=== PATIENT | female | born 1935 ===

== ENCOUNTER 2019-10-22 01:23 | Inpatient (IN) | payer MEDICARE, SELFPAY ==
[2019-10-21 22:24] VITALS: BMI 23.8
[2019-10-21 23:03] VITALS: BP 126/69; PULSE 82; RESP 17; TEMP 37.4; O2SAT 92
[2019-10-22] VITALS (9 sets, daily range): BP systolic 108–148; BP diastolic 62–70; PULSE 77–90; RESP 16–22; TEMP 36.6–37.3; O2SAT 93–95; BMI 23.0
--- NOTE | 2019-10-22 01:23 | USCV_ITS ---
Daron Christianne Age: 84 Gender: F : 1935 Exam Date: 10/22/2019 08:26 Ordering Phys: Evelia Butler MD Technologist: Heena Powers Exam Location: [facility] – [place] Indication: CVA workup BP: 112 / 62 HR: 100 Rhythm: Sinus Technical Quality: Fair MEASUREMENTS (Male / Female) Normal Values 2D ECHO LV Diastolic Diameter PLAX 3.3 cm 4.2 - 5.9 / 3.9 - 5.3 cm LV Systolic Diameter PLAX 1.9 cm LV Chamber Size 3.2 cm IVS Diastolic Thickness 1.6 cm 0.6 - 1.0 / 0.6 - 0.9 cm IVS Systolic Thickness 1.9 cm LVPW Diastolic Thickness 1.3 cm 0.6 - 1.0 / 0.6 - 0.9 cm LVPW Systolic Thickness 1.4 cm RV Chamber Size 2.0 cm LVOT Diameter 1.8 cm LV Ejection Fraction 2D Teich 74.5 % LV Ejection Fraction MOD 2C 73.9 % LV Ejection Fraction 2C AL 75.7 % LA Diameter 4.6 cm LA Width 2.8 cm LA Height 4.3 cm RA Width 2.5 cm RA Height 4.4 cm Aorta at Sinotubular Diameter 3.1 cm M-MODE LV Diastolic Diameter MM 4.9 cm 4.2 - 5.9 / 3.9 - 5.3 cm LV Systolic Diameter MM 3.0 cm LV Ejection Fraction MM Teich 68.6 % IVS Diastolic Thickness MM 1.4 cm 0.6 - 1.0 / 0.6 - 0.9 cm IVS Systolic Thickness MM 2.0 cm LVPW Diastolic Thickness MM 1.3 cm 0.6 - 1.0 / 0.6 - 0.9 cm LVPW Systolic Thickness MM 1.8 cm RV Diastolic Diameter MM 0.9 cm Aortic Annulus Diameter 3.4 cm LA Ao Ratio MM 1.3 MV E Point Septal Separation 0.8 cm DOPPLER AV Peak Velocity 188.0 cm/s LVOT Peak Velocity 156.0 cm/s AV Area Cont Eq vti 2.6 cm squared AV Area Cont Eq pk 2.2 cm squared MV Area PHT 2.7 cm squared Mitral E to A Ratio 0.8 MV E' Velocity 8.0 cm/s Mitral E to MV E' Ratio 10.4 Mitral E to LV E' Lateral Ratio 10.0 Mitral E to LV E' Septal Ratio 10.9 TR Peak Velocity 299.0 cm/s TR Peak Gradient 35.9 mmHg TR Mean Velocity 210.5 cm/s TR Mean Gradient 18.5 mmHg TR Velocity Time Integral 77.2 cm TV Peak E Velocity 65.0 cm/s Right Atrial Pressure 3.0 mmHg Pulmonary Artery Systolic Pressu 38.8 mmHg PV Peak Velocity 94.0 cm/s RV Acceleration Time 0.1 s RV Ejection Time 0.3 s RV AcT/ET 0.2 FINDINGS Left Ventricle Normal left ventricular cavity size. Mild left ventricular hypertrophy. Normal left ventricular systolic function. No regional wall motion abnormalities. Grade I/IV diastolic dysfunction (abnormal relaxation filling pattern), normal to mildly elevated filling pressures. Left ventricular ejection fraction is estimated at 65 %. Right Ventricle Normal right ventricular size and systolic function. Mild pulmonary hypertension, RVSP 38.8 mmHg. Right Atrium The right atrium is normal in size. Left Atrium Mildly increased left atrial size. Mitral Valve Structurally normal mitral valve. Trace mitral valve regurgitation. Aortic Valve Structurally normal aortic valve without significant sclerosis or stenosis. There is no aortic regurgitation. Tricuspid Valve Structurally normal tricuspid valve. Trace to mild tricuspid valve regurgitation. Pulmonic Valve Pulmonic valve not well visualized. Pericardium Normal pericardium without effusion. Aorta Normal ascending aorta dimension. CONCLUSIONS Normal left ventricular cavity size. Mild left ventricular hypertrophy. Normal left ventricular systolic function. No regional wall motion abnormalities. Grade I/IV diastolic dysfunction (abnormal relaxation filling pattern), normal to mildly elevated filling pressures. Left ventricular ejection fraction is estimated at 65 %. Normal right ventricular size and systolic function. Mild pulmonary hypertension, RVSP 38.8 mmHg. Mildly increased left atrial size. Structurally normal mitral valve. Trace mitral valve regurgitation. There are no prior echocardiogram studies to compare. Dr. Jairo Ling MD (Electronically Signed) Final Date: 22 October 2019 11:15 S
--- NOTE | 2019-10-22 01:29 | P.HP_ITS ---
Providers/Chief Complaint Admitting Physician: Evelia Butler MD Chief Complaint: stroke;colitis History of Present Illness Christianne Neri is a 84 year old female with PMHx of OA (knees), Restless leg syndrome, HTN; presents as a transfer from [facility] where she had presented earlier in the day with slurred speech, left-sided weakness that family has started to notice on Thursday. Daughter present at bedside during my assessment on patient's arrival to the floor. Patient speech is quite slurred so daughter provides much of her history. Patient has been living independently and daughter states she has had 7-8 falls due to unsteady gait since this past weekend. When she spoke to her on the phone on Thursday she noticed that her speech was quite slurred and difficult to understand. Patient was taken to her PCP for evaluation and diagnosed with a UTI and prescribed cefdinir which she has been taking. She has progressively gotten weaker, more unsteady and has been drooling particularly earlier today. She was found on the floor with decreased responsiveness, had been down for an unknown period of time. Per family patient has never had a stroke before though there was suspicious that this might have happened when she started to act differently. She has been slow to respond and somewhat disoriented as well. I reviewed paperwork provided by outside facility indicating that patient had significant leukocytosis with a white count of 27.9, noted left shift with bandemia, normal hemoglobin and platelet count, slight hypokalemia with a potassium of 3.4, BUN of 25, creatinine of 1.2, blood glucose of 181. Lipase of 66. Urinalysis shows evidence of dehydration and infection, positive for pyuria, ketones, bacteria, bilirubin. CT scan of the head showed subacute right frontal lobe changes with no acute bleed noted. CT scan of the abdomen and pelvis was done as well showing left descending and sigmoid colon wall thickening consistent with colitis, unable to rule out lesion. She also had a CTA of the head and neck which shows mild irregularity of the carotids but no dissection, thrombus. She was not considered a candidate for TPA given the window of presentation. Vital signs are stable. She has consistently shown left-sided weakness and slurring of her speech. Patient does mention that she has had multiple episodes of watery stool over the past several days. She is very restless and I suspect she will likely not pass her bedside dysphasia screen given the obvious slurring of her speech and noted droop. Explained care plan to the patient and her family at bedside. Review of Systems Const: Reports: fatigue; Denies: fever or chills Eyes: Denies: change in vision ENMT: Reports: other (Difficulty swallowing) Card: Denies: chest pain, swelling of feet/ankles or lightheadedness Resp: Denies: shortness of breath GI: Reports: diarrhea; Denies: abdominal pain, nausea, vomiting, vomiting blood or blood in stool : Denies: difficulty urinating, painful urination or urinary frequency Musc: Denies: back pain Skin/Breast: Denies: rash Neuro: Reports: weakness in extremities (Left-sided), difficulty walking, frequent falls, confusion and slurred speech; Denies: numbness in extremities Psych: Denies: anxiety Medications/Allergies Home Medications Medication Instructions Recorded Confirmed Last Taken Type cefdinir mg 10/21/19 10/21/19 Unknown History clonazepam PRN 10/21/19 Unknown History lisinopril 10/21/19 10/21/19 History 40 olmesartan-hydrochlorothiazide tab 10/21/19 10/21/19 Unknown History Allergies Allergy/AdvReac Type Severity Reaction Status Date / Time codeine Allergy ALGY-Anaphy Verified 10/21/19 23:07 laxis PFSH Acute PFSH: Statuses (acute, chronic, etc) shown below reflect problem list status as previously entered and may not be historically accurate Medical History (Updated 10/22/19 @ 03:43 by Evelia Butler MD) Hypertension (Acute) Surgical History (Updated 10/22/19 @ 03:35 by Evelia Butler MD) H/O hysterectomy for benign disease (Acute) Family History Mother Cervical cancer Father Lung cancer Brother Heart attack Social History (Updated 10/22/19 @ 03:35 by Evelia Butler MD) Smoking and tobacco status: never smoked Alcohol intake: never Substance/Drug Use: never Lives independently: Yes Vitals/I&O/Wt Last Vital Signs Temp 98.9 F 10/22/19 00:52 Pulse 84 10/22/19 00:52 Resp 21 H 10/22/19 00:52 BP 148/67 10/22/19 00:52 Pulse Ox 93 10/22/19 00:52 10/21/19 10/21/19 10/22/19 14:59 22:59 06:59 Intake Total 0 / 0 Balance 0 / 0 Weight last 48 hrs Weight 59.194 kg Physical Exam Const: COMMON NORMALS: no apparent distress and oriented x3 GENERAL APPEARANCE: cooperative and comfortable ORIENTATION/CONSCIOUSNESS: Yes awake, Yes oriented to person, Yes oriented to place and Yes oriented to time HENMT: COMMON NORMALS: normocephalic, head/scalp atraumatic and hearing grossly normal bilaterally HEAD & SCALP: normocephalic and atraumatic MOUTH: moist mucous membranes abnormal Details: parched Eye: COMMON NORMALS: PERRL, EOMs intact bilaterally and conjunctivae normal CONJUNCTIVA: Yes conjunctivae normal PUPIL: Yes PERRL Neck/C-Spine: COMMON NORMALS: full ROM GENERAL: Yes normal visual inspection and Yes trachea midline Resp: COMMON NORMALS: normal respiratory effort, no retractions, no use of accessory muscles and clear to auscultation bilaterally EFFORT & INSPECTION: Yes able to speak in complete sentences, Yes symmetric chest movement and No tachypneic AUSCULTATION: clear to auscultation bilaterally Cardio: COMMON NORMALS: regular rate, regular rhythm, S1 normal heart sound, S2 normal heart sound and no murmurs RATE: regular rate RHYTHM: regular rhythm HEART SOUNDS: S1 normal and S2 normal GI: COMMON NORMALS: normal to inspection, nondistended, normoactive bowel sounds, soft to palpation and non-tender PALPATION: Yes soft Extremity: COMMON NORMALS: normal to inspection and no clubbing, cyanosis or edema; negative for no pedal edema Neuro: COMMON NORMALS: oriented x3, moves all extremities, no focal motor deficits, no sensory deficits noted and gait normal SENSORIUM/ORIENTATION: Yes alert, Yes oriented to person, Yes oriented to place and Yes oriented to time SPEECH: abnormal speech Details: slurred GAIT: Yes unable to assess gait MOTOR EXAM: movement abnormality noted PUPIL EXAM: Normal pupillary reactivity/response: bilateral OTHER: -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 and weakness of LLE Psych: COMMON NORMALS: mental status grossly normal, thought process normal, cooperative, affect normal and speech normal SPEECH: Yes normal speech THOUGHT PROCESS: normal thought process Skin: COMMON NORMALS: no rashes or lesions noted, no jaundice, no petechiae and no mottling GENERAL SKIN EXAM: no rashes or lesions noted Data Other Labs: -reviewed labs done at [facility], paperwork in chart CBC : WBC-27.9 with bandemia BMP: K-3.4, BUN-25, Cr-1.2, BG-181; otherwise wnl UA: green/+ketones/+nitrite/+bilirubin/+bacteria Other data: -CT head: Subacute right frontal lobe changes -CT A/P: Left descending and sigmoid colon wall thickening -CTA H/N: Mild irregularity of carotids A&P Assessment and plan (1) CVA (cerebral vascular accident): -Subacute CVA involving the right frontal lobe per CT scan done at outside facility -Neuro deficits include slurred speech, dysphasia, left-sided weakness -fall, aspiration precautions -PT/ST/OT evaluations -order Echo -telemetry montioring -monitor vital signs -bedside dysphagia screening Status: Acute Qualifiers: CVA mechanism: unspecified Qualified Code(s): I63.9 - Cerebral infarction, unspecified Code(s): I63.9 - Cerebral infarction, unspecified (2) Colitis: -noted colitis involving L descending and sigmoid colon -noted leukocytosis with bandemia; repeat labs in AM -had received dose of Metronidazole at [facility]; continue this and add Ciprofloxacin -f/u blood cx -monitor vital signs -pain control, antiemetics as needed -IVF hydration Status: Acute Code(s): K52.9 - Noninfective gastroenteritis and colitis, unspecified (3) UTI (urinary tract infection): -UA indicative of infection and patient had been on oral antibiotics for the same -on IV abx -f/u urine cx Status: Acute Qualifiers: Urinary tract infection type: acute cystitis Hematuria presence: without hematuria Qualified Code(s): N30.00 - Acute cystitis without hematuria Code(s): N39.0 - Urinary tract infection, site not specified Additional A&P Information -Advanced age -HTN -GI ppx with PPI -DVT ppx with heparin -Dispo: may need SNF placement as has been living independently -Code status: DNR/DNI Attestations Medical Necessity Statement*: Christianne Neri's hospital stay will require greater than 2 midnights for management of subacute CVA with noted deficits, treatment of colitis and UTI, requiring IV fluid hydration and IV antibiotics. Time Spent in Patient Care: Greater than 35 minutes (>than 50% of time spent in counselling and/or direct pt care on unit) . Coding Level of Care Code Acute Direct Sales Representative for [facility] Fwd Diagnoses CVA (cerebral vascular accident) I63.9 CVA mechanism: unspecified Colitis K52.9 UTI (urinary tract infection) N30.00 Urinary tract infection type: acute cystitis Hematuria presence: without hematuria
[2019-10-22] MEDS: D5-NS 0.45% + KCL 20 mEq 20 MEQ/1,000 ML BAG 75 MEQ IV ×2 (02:17→13:58)
[2019-10-22] MEDS: heparin 5,000 unit/mL INJ 1 mL 5000 UNIT SUBCUT ×2 (02:17→12:27)
[2019-10-22] MEDS: ciprofloxacin 400 MG/200 ML PREMIX 200 MG IV ×2 (02:18→12:26)
[2019-10-22] MEDS: morphine 4 mg/mL SDV 1 mL 2 MG IVP ×2 (02:29→13:58)
[2019-10-22] MEDS: metroNIDAZOLE IV 500 MG/100 ML PREMIX 100 MG IV ×3 (04:54→17:34)
[2019-10-22 06:04] LABS: Basophils # 0.1 10^3/uL (0.0-0.1); Basophils % 0.4 %; Eosinophils % 0.2 %; Hemoglobin 12.7 g/dL (11.5-15.3); Lymphocytes # 0.8 10^3/uL (0.8-4.8); Lymphocytes % 4.6 %; Mean Corpuscular HGB Conc 32.6 g/dL (30.0-36.0); Mean Corpuscular Hemoglobin 30.2 pg (28.0-34.0); Mean Corpuscular Volume 92.6 fL (81-99); Mean Platelet Volume 11.1 fL (7.4-10.4); Monocytes # 1.3 10^3/uL (0.2-0.9); Monocytes % 7.6 %; Neutrophils # 14.8 10^3/uL (1.8-7.7); Neutrophils % 86.7 %; Nucleated Red Blood Cells % 0 %; Platelet Count 239 10^3/cmm (130-400); Red Blood Count 4.21 10^6/uL (4.1-5.3); Red Cell Distribution Width 13.3 % (12.1-15.1)
[2019-10-22 06:21] LABS: INR 1.25 (0.8-1.2)
[2019-10-22 06:37] LABS: Estmated Average Glucose 120; Hemoglobin A1C 5.8 % (4.0-6.0)
[2019-10-22 06:41] LABS: Anion Gap 13.5 (5-19); Blood Urea Nitrogen 22 mg/dL (8-23); Carbon Dioxide 22 mmol/L (22-29); Chloride 108 mmol/L (98-107); Cholesterol 105 mg/dL (0-200); Glucose 126 mg/dL (74-106); HDL Cholesterol 35 mg/dL (60-100); LDL Cholesterol Calculated 55 mg/dL (50-129); LDL HDL Ratio 1.57 RATIO (0.00-3.22); Potassium 3.5 mmol/L (3.5-5.1); Sodium 140 mmol/L (136-145); Thyroid Stimulating Hormone 1.59 uIU/mL (0.27-4.20); Triglycerides 73 mg/dL (0-150)
[2019-10-22] MEDS: pantoprazole 40 mg SDV IVP (08:35)
--- NOTE | 2019-10-22 10:40 | P.PN_ITS ---
Subjective Subjective: Interval history: History and physical was reviewed in detail. Patient reports she feels stiff. She has difficulty moving her left side. She reports she cannot swallow effectively. She denies any abdominal pain. Currently she denies any diarrhea. Medications: Reviewed: Yes Vitals/I&O/Wt Last Vital Signs Temp 97.9 F 10/22/19 08:00 Pulse 79 10/22/19 08:00 Resp 18 10/22/19 08:00 BP 116/68 10/22/19 08:00 Pulse Ox 95 10/22/19 08:00 10/21/19 10/22/19 10/22/19 22:59 06:59 14:59 Intake Total 300 / 300 Balance 300 / 300 Weight last 48 hrs Weight 57.153 kg Weight 57.561 kg Weight 59.194 kg Physical Exam Narrative: EXAM NARRATIVE: General exam is a white female, no apparent distress. Speech is slurred Cardiovascular regular rate and rhythm without murmur Lungs diminished breath sounds bilaterally but clear Abdomen is soft, positive bowel sounds. No obvious organomegaly was deferred Extremities no cyanosis clubbing or edema Neurologic: Left facial droop is noted. Left arm with significant paresis. Left leg with partial paresis. Left-sided neglect is present Data : 10/22/19 05:28 10/22/19 05:28 Other data: Echocardiogram is completed but pending Outside laboratory reviewed. EKG demonstrated sinus rhythm, normal axis, slight tachycardia. Nonspecific ST-T wave abnormalities. There is no formal report for her CTs in the chart that I have reviewed and we will ask for those. From my understanding her CTA was negative for embolism or significant narrowing, CTA demonstrated right frontal lobe subacute infarct and CT abdomen and pelvis demonstrated colitis left-sided A&P Assessment and plan (1) CVA (cerebral vascular accident): Subacute, right frontal lobe. Plan therapy evaluations, supportive care, statin, aspirin, Plavix Telemetry Status: Acute Qualifiers: CVA mechanism: unspecified Qualified Code(s): I63.9 - Cerebral infarction, unspecified Code(s): I63.9 - Cerebral infarction, unspecified (2) Colitis: Noted on CT scan. Patient without symptoms currently. Placed on Cipro and Flagyl. This will be continued currently. Follow-up cultures Status: Acute Code(s): K52.9 - Noninfective gastroenteritis and colitis, unspecified (3) UTI (urinary tract infection): Patient was on treatment for urinary tract infection when she presented to the ER. Continue Cipro currently. Follow-up on cultures from other hospital. Status: Acute Qualifiers: Urinary tract infection type: acute cystitis Hematuria presence: without hematuria Qualified Code(s): N30.00 - Acute cystitis without hematuria Code(s): N39.0 - Urinary tract infection, site not specified Additional A&P Information Hypertension. Permissive hypertension currently and hold all medications DVT prophylaxis with heparin CODE STATUS DNR/DNI Attestations Medical Necessity Statement*: Needs continued hospitalization for evaluation of CVA, supportive care. Likely will need rehabilitation. 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
[2019-10-22] MEDS: atorvastatin 40 mg Tablet PO (21:48)
[2019-10-23] VITALS (13 sets, daily range): BP systolic 146–164; BP diastolic 74–91; PULSE 77–96; RESP 16–20; TEMP 36.7–37.6; O2SAT 92–96
[2019-10-23] MEDS: ciprofloxacin 400 MG/200 ML PREMIX 200 MG IV ×2 (00:58→13:59)
[2019-10-23] MEDS: heparin 5,000 unit/mL INJ 1 mL 5000 UNIT SUBCUT ×2 (00:58→14:01)
[2019-10-23] MEDS: metroNIDAZOLE IV 500 MG/100 ML PREMIX 100 MG IV ×3 (03:02→20:57)
[2019-10-23 05:53] LABS: Basophils % 0.3 %; Eosinophils # 0.2 10^3/uL (0.0-0.8); Eosinophils % 1.6 %; Hematocrit 37.5 % (37.0-47.0); Hemoglobin 12.3 g/dL (11.5-15.3); Lymphocytes # 0.7 10^3/uL (0.8-4.8); Lymphocytes % 5.6 %; Mean Corpuscular HGB Conc 32.8 g/dL (30.0-36.0); Mean Corpuscular Hemoglobin 30.1 pg (28.0-34.0); Mean Corpuscular Volume 91.7 fL (81-99); Mean Platelet Volume 11.7 fL (7.4-10.4); Monocytes # 1.1 10^3/uL (0.2-0.9); Monocytes % 9.3 %; Neutrophils # 9.9 10^3/uL (1.8-7.7); Neutrophils % 82.9 %; Nucleated Red Blood Cells % 0 %; Platelet Count 219 10^3/cmm (130-400); Red Blood Count 4.09 10^6/uL (4.1-5.3); Red Cell Distribution Width 13.3 % (12.1-15.1); White Blood Count 11.9 10^3/uL (4.0-10.0)
[2019-10-23 06:11] LABS: Anion Gap 13.3 (5-19); Blood Urea Nitrogen 10 mg/dL (8-23); Carbon Dioxide 23 mmol/L (22-29); Chloride 107 mmol/L (98-107); Glucose 115 mg/dL (74-106); Potassium 3.3 mmol/L (3.5-5.1); Sodium 140 mmol/L (136-145)
[2019-10-23] MEDS: pantoprazole 40 mg SDV IVP (09:41)
[2019-10-23] MEDS: clopidogrel 75 mg Tablet PO (09:41)
[2019-10-23] MEDS: aspirin 325 mg Tablet PO (09:41)
--- NOTE | 2019-10-23 11:29 | XRR_ITS ---
PROCEDURE INFORMATION: Exam: XR Left Hip with Pelvis when Performed Exam date and time: 10/23/2019 11:30 AM Age: 84 years old Clinical indication: Hip pain and pelvic pain; Left hip; Additional info: Left hip pain TECHNIQUE: Imaging protocol: XR Left hip with pelvis when performed. Views: 2 or 3 views. COMPARISON: No relevant prior studies available. FINDINGS: Bones/joints: Unremarkable. No acute fracture. Both hips are well conjugated. No significant joint space narrowing. Femoral heads maintain normal round. Soft tissues: Unremarkable. XR/XR hip LT 2-3V wo/w pel* [id number] IMPRESSION: No acute findings.
[2019-10-23] MEDS: D5-NS 0.45% + KCL 20 mEq 20 MEQ/1,000 ML BAG 75 MEQ IV (14:04)
--- NOTE | 2019-10-23 15:15 | P.PN_ITS ---
Subjective Subjective: Interval history: Feeling a little bit better. Swallowing a little bit better. No movement left upper extremity. Some complaints of left groin pain Medications: Reviewed: Yes Vitals/I&O/Wt Last Vital Signs Temp 98.4 F 10/23/19 12:00 Pulse 89 10/23/19 12:00 Resp 18 10/23/19 12:00 BP 149/80 10/23/19 12:00 Pulse Ox 92 10/23/19 10:46 10/23/19 10/23/19 10/23/19 06:59 14:59 22:59 Intake Total 1320 / 2836.25 180 / 180 Balance 1320 / 2686.25 180 / 180 Weight last 48 hrs Weight 60.526 kg Weight 61.037 kg Weight 57.153 kg Weight 57.561 kg Weight 59.194 kg Physical Exam Narrative: EXAM NARRATIVE: General exam is a white female, no apparent distress. Speech is slurred Cardiovascular regular rate and rhythm without murmur Lungs diminished breath sounds bilaterally but clear Abdomen is soft, positive bowel sounds. No obvious organomegaly was deferred Extremities no cyanosis clubbing or edema Neurologic: Left facial droop is noted. Left arm with near complete paresis. Left leg with partial paresis. Left-sided neglect is present. Overall unchanged from yesterday Data : 10/23/19 04:27 10/23/19 04:27 A&P Assessment and plan (1) CVA (cerebral vascular accident): Subacute, right frontal lobe. More alert today. Plan therapy evaluations, supportive care, statin, aspirin, Plavix Telemetry Plan discharge to skilled care Status: Acute Qualifiers: CVA mechanism: unspecified Qualified Code(s): I63.9 - Cerebral infarction, unspecified Code(s): I63.9 - Cerebral infarction, unspecified (2) Colitis: Noted on CT scan. Patient without symptoms currently. Placed on Cipro and Flagyl. This will be continued currently. Follow-up cultures Status: Acute Code(s): K52.9 - Noninfective gastroenteritis and colitis, unspecified (3) UTI (urinary tract infection): Patient was on treatment for urinary tract infection when she presented to the ER. Continue Cipro currently. Follow-up on cultures from other hospital. Status: Acute Qualifiers: Hematuria presence: without hematuria Urinary tract infection type: a cute cystitis Qualified Code(s): N30.00 - Acute cystitis without hematuria Code(s): N39.0 - Urinary tract infection, site not specified Additional A&P Information Hypertension. Permissive hypertension currently and hold all medications Reduce fluids. 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
[2019-10-23] MEDS: atorvastatin 40 mg Tablet PO (20:56)
[2019-10-23] MEDS: D5-NS 0.45% + KCL 20 mEq 20 MEQ/1,000 ML BAG 50 MEQ IV (20:57)
[2019-10-24] MEDS: ciprofloxacin 400 MG/200 ML PREMIX 200 MG IV ×2 (00:35→13:07)
[2019-10-24] MEDS: heparin 5,000 unit/mL INJ 1 mL 5000 UNIT SUBCUT ×2 (00:35→13:08)
[2019-10-24] MEDS: metroNIDAZOLE IV 500 MG/100 ML PREMIX 100 MG IV ×2 (03:43→11:50)
[2019-10-24 03:47] VITALS: BP 155/74; PULSE 84; RESP 20; TEMP 37.1; O2SAT 91
[2019-10-24 04:00] VITALS: BP 155/74; PULSE 84; RESP 20; TEMP 37.1
[2019-10-24 05:15] LABS: Basophils # 0.1 10^3/uL (0.0-0.1); Basophils % 0.6 %; Eosinophils # 0.2 10^3/uL (0.0-0.8); Eosinophils % 2.3 %; Hemoglobin 13.2 g/dL (11.5-15.3); Lymphocytes % 10.2 %; Mean Corpuscular Hemoglobin 30.1 pg (28.0-34.0); Mean Corpuscular Volume 91.1 fL (81-99); Mean Platelet Volume 11.8 fL (7.4-10.4); Monocytes # 1.2 10^3/uL (0.2-0.9); Monocytes % 12.3 %; Neutrophils # 6.9 10^3/uL (1.8-7.7); Neutrophils % 74.2 %; Nucleated Red Blood Cells % 0 %; Platelet Count 222 10^3/cmm (130-400); Red Blood Count 4.39 10^6/uL (4.1-5.3); Red Cell Distribution Width 13.2 % (12.1-15.1); White Blood Count 9.4 10^3/uL (4.0-10.0)
[2019-10-24 07:04] VITALS: BP 145/83; PULSE 75; RESP 16; TEMP 37.2; O2SAT 96
[2019-10-24] MEDS: clopidogrel 75 mg Tablet PO (09:28)
[2019-10-24] MEDS: aspirin 325 mg Tablet PO (09:28)
[2019-10-24] MEDS: pantoprazole 40 mg SDV IVP (09:39)
[2019-10-24 12:00] VITALS: BP 116/66; PULSE 85; RESP 16; TEMP 35.7; TEMP 36.3; O2SAT 94
[2019-10-24 15:10] VITALS: BP 147/77; PULSE 80; RESP 16; TEMP 36.4; O2SAT 90
--- NOTE | 2019-10-24 19:52 | PM.PN ---
Subjective Subjective: Interval history: Patient is sitting in a chair this morning, her only complaint is the hospital fluid, states that some of the strength in her left lower extremity has improved, left upper extremity still remains quite weak, has persistent left facial droop, per speech has improved, is anxious about going to a residential, but other than that has no other complaints Medications: Reviewed: Yes Vitals/I&O/Wt Last Vital Signs Temp 97.6 F 10/24/19 15:10 Pulse 80 10/24/19 15:10 Resp 16 10/24/19 15:10 BP 147/77 10/24/19 15:10 Pulse Ox 90 10/24/19 15:10 10/24/19 10/24/19 10/24/19 06:59 14:59 22:59 Intake Total 480.833 / 1401.666 240 / 240 Output Total 150 / 150 Balance 480.833 / 1401.666 90 / 90 Weight last 48 hrs Weight 61.433 kg Weight 60.526 kg Weight 61.037 kg Physical Exam Const: COMMON NORMALS: no apparent distress and oriented x3 HENMT: COMMON NORMALS: normocephalic HEAD & SCALP: normocephalic Neck/C-Spine: COMMON NORMALS: no JVD Resp: COMMON NORMALS: normal respiratory effort, no retractions, no use of accessory muscles and clear to auscultation bilaterally AUSCULTATION: clear to auscultation bilaterally Cardio: COMMON NORMALS: no JVD, regular rate, regular rhythm, S1 normal heart sound and S2 normal heart sound RATE: regular rate RHYTHM: regular rhythm HEART SOUNDS: S1 normal and S2 normal GI: COMMON NORMALS: normal to inspection, nondistended, normoactive bowel sounds, soft to palpation, non-tender, no hepatosplenomegaly, no masses and no bruits PALPATION: Yes soft and Yes no hepatosplenomegaly Extremity: COMMON NORMALS: normal capillary refill, no clubbing, cyanosis or edema, no calf tenderness and no pedal edema Neuro: COMMON NORMALS: oriented x3 OTHER: Left lower extremity strength 3 out of 5 compared to 5 out of 5 on the right Left upper extremity strength 1 out of 5 compared to 5 out of 5 on the left Left facial droop Mild slurring of her speech Psych: COMMON NORMALS: mental status grossly normal Data : 10/24/19 04:32 10/23/19 04:27 A&P Assessment and plan (1) CVA (cerebral vascular accident): Subacute, right frontal lobe. Plan therapy evaluations, supportive care, statin, aspirin, Plavix Telemetry Plan discharge to skilled care Continue permissive hypertension for the next 48 hours, will slowly institute blood pressure medications after Status: Acute Qualifiers: CVA mechanism: unspecified Qualified Code(s): I63.9 - Cerebral infarction, unspecified Code(s): I63.9 - Cerebral infarction, unspecified (2) Colitis: Is currently asymptomatic, will transition to oral ciprofloxacin and Flagyl Status: Acute Code(s): K52.9 - Noninfective gastroenteritis and colitis, unspecified (3) UTI (urinary tract infection): Continue Cipro Follow cultures Status: Acute Qualifiers: Urinary tract infection type: acute cystitis Hematuria presence: without hematuria Qualified Code(s): N30.00 - Acute cystitis without hematuria Code(s): N39.0 - Urinary tract infection, site not specified Additional A&P Information Hypertension. 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
[2019-10-24 20:00] VITALS: BP 160/78; PULSE 100; RESP 20; TEMP 37.2; O2SAT 91
[2019-10-24] MEDS: atorvastatin 40 mg Tablet PO (21:53)
[2019-10-24] MEDS: metroNIDAZOLE 500 MG Tablet PO (21:53)
[2019-10-25] VITALS: BP 151/75; PULSE 87; RESP 18; TEMP 36.7; O2SAT 91
[2019-10-25] MEDS: heparin 5,000 unit/mL INJ 1 mL 5000 UNIT SUBCUT ×2 (01:59→13:36)
[2019-10-25 04:00] VITALS: BP 139/73; PULSE 85; RESP 17; TEMP 37.1; O2SAT 93
[2019-10-25 04:56] LABS: Basophils # 0.1 10^3/uL (0.0-0.1); Basophils % 0.8 %; Eosinophils # 0.4 10^3/uL (0.0-0.8); Eosinophils % 4.2 %; Hematocrit 40.3 % (37.0-47.0); Hemoglobin 13.2 g/dL (11.5-15.3); Lymphocytes # 1.3 10^3/uL (0.8-4.8); Lymphocytes % 14.2 %; Mean Corpuscular HGB Conc 32.8 g/dL (30.0-36.0); Mean Corpuscular Hemoglobin 30.1 pg (28.0-34.0); Mean Platelet Volume 11.1 fL (7.4-10.4); Monocytes % 11.6 %; Neutrophils # 6.1 10^3/uL (1.8-7.7); Neutrophils % 68.4 %; Nucleated Red Blood Cells % 0 %; Platelet Count 252 10^3/cmm (130-400); Red Blood Count 4.38 10^6/uL (4.1-5.3); Red Cell Distribution Width 13.2 % (12.1-15.1); White Blood Count 8.9 10^3/uL (4.0-10.0)
[2019-10-25 05:11] VITALS: RESP 16
[2019-10-25] MEDS: morphine 4 mg/mL SDV 1 mL 2 MG IVP (05:11)
[2019-10-25 05:16] LABS: Alanine Aminotransferase 17 U/L (0-33); Albumin Level 3.2 g/dL (3.5-5.2); Alkaline Phosphatase 61 IU/L (35-105); Anion Gap 10.9 (5-19); Aspartate Amino Transferase 51 U/L (0-32); Blood Urea Nitrogen 7 mg/dL (8-23); Calcium 9.1 mg/Dl (8.8-10.2); Carbon Dioxide 26 mmol/L (22-29); Chloride 106 mmol/L (98-107); Globulin 2.5 g/dL (1.3-4.6); Glucose 114 mg/dL (74-106); Potassium 3.9 mmol/L (3.5-5.1); Sodium 139 mmol/L (136-145); Total Bilirubin 0.4 mg/dL (0.15-1.2); Total Protein 5.7 g/dL (6.6-8.7)
[2019-10-25 07:39] VITALS: BP 162/86; PULSE 89; RESP 15; TEMP 36.7; O2SAT 94
[2019-10-25] MEDS: pantoprazole DR 40 mg Tablet PO (08:47)
[2019-10-25] MEDS: metroNIDAZOLE 500 MG Tablet PO (08:47)
[2019-10-25] MEDS: aspirin 81 mg EC Tablet PO (08:47)
[2019-10-25] MEDS: clopidogrel 75 mg Tablet PO (08:47)
[2019-10-25] MEDS: ciprofloxacin 500 mg Tablet PO (08:47)
--- NOTE | 2019-10-25 10:37 | PC.NURSE ---
ot will be helping the patient with her bathing needs today
[2019-10-25] MEDS: lisinopril 20 mg Tablet 40 MG PO (10:39)
[2019-10-25 11:17] VITALS: BP 116/77; PULSE 91; RESP 18; TEMP 36.3; O2SAT 94
--- NOTE | 2019-10-25 15:40 | PC.NURSE ---
Report called to Nurse Rosa at [facility]. Nurse verbalized understanding of the information and did not have any further questions.
[2019-10-25 15:44] VITALS: BP 116/77; PULSE 91; RESP 18; TEMP 36.4; O2SAT 94
--- NOTE | 2019-10-25 17:22 | P.DS_ITS ---
Discharge Providers Date of Admission: 10/22/19 01:23 Date of Discharge: 10/25/19 Attending Provider at Admission: Evelia Butler MD Attending Provider at Discharge: Hai Persaud MD Diagnoses at Discharge Discharge Diagnosis (1) CVA (cerebral vascular accident): Status: Acute Qualifiers: CVA mechanism: unspecified Qualified Code(s): I63.9 - Cerebral infarction, unspecified (2) Colitis: Status: Acute (3) UTI (urinary tract infection): Status: Acute Qualifiers: Urinary tract infection type: acute cystitis Hematuria presence: without hematuria Qualified Code(s): N30.00 - Acute cystitis without hematuria Reason for Visit Reason for Visit: Reason For Visit: stroke;colitis Hospital Course Discharge Summary: Christianne Neri is a 84 year old female with PMHx of OA (knees), Restless leg syndrome, HTN; presents as a transfer from [facility] where she had presented earlier in the day with slurred speech, left- sided weakness that family has started to notice on Thursday. Patient was admitted for subacute CVA involving the right frontal lobe, neurologic deficits on admission include slurred speech, dysphagia, left-sided weakness of upper and lower extremity, patient was out of the TPA window, she was medically managed with aspirin, statin, IV fluids, speech therapy, physical therapy, permissive hypertension for 48 hours. Patient had on presentation dysphagia, requiring a pur?ed diet, which can be transitioned based on clinical progress as outpatient. Patient had persistent left upper and left lower extremity deficits throughout her admission, also left facial droop, slight slurred speech, received physical therapy, will require extensive physical therapy and speech therapy as outpatient. Patient was discharged on dual antiplatelet therapy for 3 weeks, fo llowed by aspirin lifelong. High-dose statin. Patient was also discharged on lisinopril 40 mg once daily, with instructions to start her olmesartan- hydrochlorothiazide based on blood pressures as outpatient. Patient will require gradual titration of her blood pressure as outpatient. [facility] Patient also was found to have a UTI on admission, was discharged on ciprofloxacin. Patient was also found to have acute colitis on admission, received IV antibiotic therapy, as patient remained asymptomatic, antibiotic therapy was discontinued. Physical Exam Const: COMMON NORMALS: no apparent distress and oriented x3 HENMT: COMMON NORMALS: normocephalic HEAD & SCALP: normocephalic Neck/C-Spine: COMMON NORMALS: no JVD Resp: COMMON NORMALS: normal respiratory effort, no retractions, no use of accessory muscles and clear to auscultation bilaterally AUSCULTATION: clear to auscultation bilaterally Cardio: COMMON NORMALS: no JVD, regular rate, regular rhythm, S1 normal heart sound and S2 normal heart sound RATE: regular rate RHYTHM: regular rhythm HEART SOUNDS: S1 normal and S2 normal GI: COMMON NORMALS: normal to inspection, nondistended, normoactive bowel sounds, soft to palpation, non-tender, no hepatosplenomegaly, no masses and no bruits PALPATION: Yes soft and Yes no hepatosplenomegaly Extremity: COMMON NORMALS: normal capillary refill, no clubbing, cyanosis or edema, no calf tenderness and no pedal edema Neuro: COMMON NORMALS: oriented x3 OTHER: Left lower extremity strength 3 out of 5 compared to 5 out of 5 on the right Left upper extremity strength 1 out of 5 compared to 5 out of 5 on the left Left facial droop Mild slurring of her speech Psych: COMMON NORMALS: mental status grossly normal Discharge Data Data Completed and Pending: Completed Studies During Hospitalization Category Date Time Status XR hip LT 2-3V wo /w pel* [id number] Rout ine Exams 10/23/19 11:29 Completed CV echo complete* [id number] Routine Ultrasound 10/22/19 01:23 Completed Labs from last 24 hours 10/25/19 10/25/19 04:30 04:30 WBC 8.9 RBC 4.38 Hgb 13.2 Hct 40.3 MCV 92.0 MCH 30.1 MCHC 32.8 RDW 13.2 Plt Count 252 MPV 11.1 H Neut % (Auto) 68.4 Lymph % (Auto) 14.2 Harding % (Auto) 11.6 Eos % (Auto) 4.2 Baso % (Auto) 0.8 Neut # (Auto) 6.1 Lymph # (Auto) 1.3 Harding # (Auto) 1.0 H Eos # (Auto) 0.4 Baso # (Auto) 0.1 Nucleated RBC % (a uto) 0 Nucleated RBCs # 0.0 Sodium 139 Potassium 3.9 Chloride 106 Carbon Dioxide 26 Anion Gap 10.9 BUN 7 L Creatinine 0.6 Glucose 114 H Calcium 9.1 Total Bilirubin 0.4 AST 51 H ALT 17 Alkaline Phosphata se 61 Total Protein 5.7 L Albumin 3.2 L Globulin 2.5 Vitals: Last Vital Signs Temp 97.6 F 10/25/19 15:44 Pulse 91 10/25/19 15:44 Resp 18 10/25/19 15:44 BP 116/77 10/25/19 15:44 Pulse Ox 94 10/25/19 15:44 Discharge Plan Discharge Patient Disposition: Xfer SNF Condition: Stable Prescriptions: New aspirin 81 mg Tablet,Delayed Release (Dr/Ec) 81 mg PO DAILY 30 Days Qty: 30 RF: 0 atorvastatin 80 mg tablet 80 mg PO BEDTIME 30 Days Qty: 30 RF: 0 clopidogrel 75 mg Tablet 75 mg PO DAILY 18 Days Qty: 18 RF: 0 ciprofloxacin HCl 500 mg tablet 500 mg PO BID 5 Days Qty: 10 RF: 0 Continued clonazepam 0.5 mg tablet PRN (Reason: Anxiety) RF: 0 lisinopril 40 mg tablet RF: 0 Held olmesartan-hydrochlorothiazide 20-12.5 mg tablet RF: 0 Hold Instructions: Resume on 10/26/19. REInstitue blood pressure medication if tolerated Discontinued cefdinir 300 mg capsule RF: 0 Discharge Orders: Discharge Order (Routine); Ordered 10/25/19 Ordered By: Hai Persaud Referrals: [facility] [Other] Discharge Diet: Advance as tolerated Discharge Activity: As per PT/OT instructions Patient Instructions: Ischemic Stroke (DC), Chronic Hypertension (DC) Activity Restrictions/Additional Instructions: -For stroke continue aspirin and Plavix, dual antiplatelet therapy for minimum of 3 weeks, stop Plavix after 18 days, and continue aspirin -High-dose statin -Physical therapy -Patient will require optimal titration of blood pressure as outpatient Discharge Date/Time: 10/25/19 14:58 Discharge Attestations Time Spent in Discharge Care*: greater than 30 min Quality Metrics Clinical Quality Measures During this hospital stay, did patient experience: Stroke Contraindication to Antithrombotic: Antithrombotic prescribed Contraindication to Anticoagulation: Overlap treatment not indicated Contraindication to Statin: Statin prescribed Coding Level of Care Code Acute Rn Emergency for [place] [facility] Diagnoses CVA (cerebral vascular accident) I63.9 CVA mechanism: unspecified Colitis K52.9 UTI (urinary tract infection) N30.00 Urinary tract infection type: acute cystitis Hematuria presence: without hematuria
== END 2019-10-25 14:58 | disposition skilled nursing facility (03) | DRG 65 ==
PROVIDERS: Admitting Provider Family Medicine; Visit Provider Family Medicine
DX: I63.9 Cerebral infarction, unspecified (principal); N30.00 Acute cystitis without hematuria; G81.94 Hemiplegia, unspecified affecting left nondominant side; K52.9 Noninfective gastroenteritis and colitis, unspecified; Z66 Do not resuscitate; I10 Essential (primary) hypertension; Z88.5 Allergy status to narcotic agent; Z79.899 Other long term (current) drug therapy; M17.10 Unilateral primary osteoarthritis, unspecified knee; G25.81 Restless legs syndrome; R47.81 Slurred speech; Z79.82 Long term (current) use of aspirin
CPT/HCPCS: 12345; 36415; 73502; 80048; 80053; 80061; 83036; 84443; 85025; 85610; 92523; 92610; 93306; 96105; 96372; 96375; 97110; 97112; 97161; 97165; 97530; 97535; C9113; J0744; J1644; J2270; S0030